=== PATIENT | male | born 1985 | race Caucasian/White ===

== ENCOUNTER → 2018-07-22 19:06 | Outpatient (REF) | payer SELFPAY ==
[2018-07-22 20:43] LABS: Urine N gonorrhoeae NOT DETECTED
[2018-07-22 20:54] LABS: Urine Chlamydia NOT DETECTED
== END ==
LOC: LAB 19:06
PROVIDERS: Visit Provider Nurse Practitioner Acute Care
DX: Z11.3 Encounter for screening for infections with a predominantly sexual mode of transmission (principal)
CPT/HCPCS: 87491; 87591

== ENCOUNTER → 2018-07-23 19:09 | Outpatient (REF) | payer SELFPAY ==
[2018-07-25 16:51] LABS: HIV 1 and 2 Antibody NEGATIVE (NEGATIVE); Hep C Virus Ab w/Reflex Quant NEGATIVE s/c (NEGATIVE)
[2018-07-26 16:43] LABS: RPR Screen Nonreactive (Nonreactive)
== END ==
LOC: LAB 19:09
PROVIDERS: Visit Provider Nurse Practitioner Acute Care
DX: Z72.51 High risk heterosexual behavior (principal)
CPT/HCPCS: 86592; 86703; 86803

== ENCOUNTER → 2023-09-07 07:32 | Outpatient (CLI) | payer OTHER, SELFPAY | PROVIDERS: Visit Provider Registered Nurse | DX: J02.9 Acute pharyngitis, unspecified (principal) | CPT/HCPCS: 87070; 87147 ==